=== PATIENT | male | born 1940 | race African-American/Black ===

== ENCOUNTER 2018-02-26 11:14 | Emergency (ER) | payer MEDICARE ==
[2018-02-26] MEDS ORDERED: KETOROLAC TROMETHAMINE INJ/PF 30 MG/1 ML SDV IM ONE (11:50)
[2018-02-26] MEDS ORDERED: DEXAMETHASONE SOD PHOS INJ 10 MG/1 ML VIAL IM ONE (11:50)
--- NOTE | 2018-02-26 11:51 | ER Document Report ---
ED Extremity Problem, Lower - General Chief Complaint: Foot Pain Stated Complaint: FOOT PAIN Time Seen by Provider: 02/26/18 11:40 Mode of Arrival: Medic Information source: Patient Notes: 77-year-old male presents to ED for gout flareup to the right foot and ankle. He states he has had gout in this area many times in the past and has not had one recently so his primary doctor is not putting on anything for the gout recently. Is also a diabetic with history of high blood pressure. He states the pain was so bad that he cannot drive himself here and he had to get a ride from EMS. TRAVEL OUTSIDE OF THE [place] IN LAST 30 DAYS: No - HPI Patient complains to provider of: Pain, Swelling Location: Ankle, Foot Where: Home Onset/Duration: Gradual Quality of pain: Sharp, Throbbing Severity: Severe Pain Level: 5 Context: Other Associated symptoms: Painful ambulation - Right hand foot and ankle Exacerbated by: Hanging down, Movement, Walking Relieved by: Nothing - Related Data Allergies/Adverse Reactions: aspirin Adverse Reaction (Verified 02/26/18 11:16) Past Medical History - General Information source: Patient - Social History Smoking Status: Never Smoker Cigarette use (# per day): No Chew tobacco use (# tins/day): No Smoking Education Provided: No Frequency of alcohol use: None Drug Abuse: None Lives with: Alone Family History: Arthritis, CVA, DM, Hyperlipidemia, Hypertension, Malignancy. denies: CAD, COPD, Thyroid Disfunction Patient has suicidal ideation: No Patient has homicidal ideation: No - Past Medical History Cardiac Medical History: Reports: Hx Hypercholesterolemia, Hx Hypertension Pulmonary Medical History: Reports: Hx Asthma, Hx COPD EENT Medical History: Reports: None Neurological Medical History: Reports: None Endocrine Medical History: Reports: Hx Diabetes Mellitus Type 2 Renal/ Medical History: Reports: None Malignancy Medical History: Reports None GI Medical History: Reports: Hx Gastritis, Hx Gastroesophageal Reflux Disease, Hx Ulcer, Hx Colonoscopy, Hx Endoscopy Musculoskeltal Medical History: Reports Hx Arthritis, Reports Hx Musculoskeletal Deformity, Reports Hx Musculoskeletal Trauma Skin Medical History: Reports None Psychiatric Medical History: Reports: None Traumatic Medical History: Reports: None Infectious Medical History: Reports: None Past Surgical History: Reports: Hx Orthopedic Surgery - Left knee ligament repairs and then total knee replacement - Immunizations Immunizations up to date: Yes Hx Diphtheria, Pertussis, Tetanus Vaccination: Yes - 4-5 years ago Review of Systems - Review of Systems Constitutional: No symptoms reported EENT: No symptoms reported Cardiovascular: No symptoms reported Respiratory: No symptoms reported Gastrointestinal: No symptoms reported Genitourinary: No symptoms reported Male Genitourinary: No symptoms reported Musculoskeletal: Other - Pain right foot and ankle swelling to the right hand and ankle Skin: No symptoms reported Hematologic/Lymphatic: No symptoms reported Neurological/Psychological: No symptoms reported -: Yes All other systems reviewed and negative Physical Exam - Vital signs Vitals: Temp Pulse Resp BP Pulse Ox 99.2 F 94 18 122/75 95 02/26/18 11:17 02/26/18 11:17 02/26/18 11:17 02/26/18 11:17 02/26/18 11:17 Interpretation: Normal - General General appearance: Appears well, Alert - HEENT Head: Normocephalic, Atraumatic Eyes: Normal Pupils: PERRL - Respiratory Respiratory status: No respiratory distress Chest status: Nontender Breath sounds: Normal Chest palpation: Normal - Cardiovascular Rhythm: Regular Heart sounds: Normal auscultation Murmur: No - Abdominal Inspection: Normal Distension: No distension Bowel sounds: Normal Tenderness: Nontender Organomegaly: No organomegaly - Back Back: Normal, Nontender - Extremities General lower extremity: Normal color. No: Silvino's sign Hand: Tender - Erythematous warm due to gout in the ring finger and hand, No evidence of human bite, No evidence of FB, Swelling. No: Abrasion, Deformity, Dislocation, Ecchymosis, Laceration, Nail injury, Tendon deficit Ankle: Tender, Edema - Erythematous due to gout, Limited ROM - Due to pain, Unable to bear weight Foot: Tender - Erythematous due to gout, Edema, No evidence of FB, Unable to bear weight - Neurological Neuro grossly intact: Yes Cognition: Normal Orientation: AAOx4 [place] Coma Scale Eye Opening: Spontaneous [place] Coma Scale Verbal: Oriented [place] Coma Scale Motor: Obeys Commands [place] Coma Scale Total: 15 Speech: Normal Motor strength normal: LUE, RUE, LLE, RLE Sensory: Normal - Psychological Associated symptoms: Normal affect, Normal mood - Skin Skin Temperature: Warm Skin Moisture: Dry Skin Color: Normal Course - Vital Signs Vital signs: Temp Pulse Resp BP Pulse Ox 99.1 F 66 16 123/74 95 02/26/18 13:33 02/26/18 13:33 02/26/18 13:33 02/26/18 13:33 02/26/18 13:33 Discharge - Discharge Clinical Impression: gout right ring finger Gout of right ankle Qualifiers: Gout etiology: unspecified cause Chronicity: unspecified Qualified Code(s): M10.9 - Gout, unspecified Condition: Stable Disposition: HOME, SELF-CARE Additional Instructions: Gout You have been diagnosed as having gout. Gout is a problem caused by an excess of uric acid, a natural chemical found in the body. The cause of this disease is unknown. Gout arthritis occurs when crystals of uric acid form in the joints. The big toe is the most common joint involved, but any joint can become affected. Persons with gout may also form uric acid kidney stones, resulting in flank pain and blood in the urine. Nodules of uric acid may form under the skin. The first step of treatment is to decrease the inflammation in the joint with antiinflammatory medication. Medication to lower the uric acid level in the blood may then be prescribed. This medication should be taken regularly, as any sudden change in dosage may provoke an attack of gout. Some foods, such as red meat, can provoke an attack in some gout sufferers. Call the doctor if new symptoms arise, or if you do not improve. Gout Diet Changing your diet can decrease the uric acid in your blood. High levels of uric acid cause gouty arthritis and uric acid kidney stones. If you have gout , you should avoid meats that are high in purine. Meat products to avoid include liver, kidneys, and brains. In general, poultry is better than red meats. Seafoods to avoid include anchovies, sardines, zamarripa, mackerel, and scallops. In addition to limiting purine-rich foods, people with gout should limit protein intake to 10-15% of total calories. Carbohydrate intake should be around 50% of total daily calories. Limit fat intake to 30% of total daily calories. Cholesterol intake should be less than 300 mg/day. Maintain or achieve a healthy body weight. Weight loss should be gradual. Rapid weight loss can actually increase uric acid levels temporarily. Alcohol, especially beer, should be avoided. Get plenty of fluids. This dilutes urinary uric acid, and helps prevent uric acid kidney stones. Drink eight to twelve cups of water daily. Toradol Injection You have been given an injection of ketorolac tromethamine (Toradol). This is an excellent, safe drug for pain control. It also has potent antiinflammatory action. You should have significant pain relief within about one hour. Toradol is not addicting and is non-sedating. It does not interfere with driving or work. Call or return if you develop itching, hives, shortness of breath, or rash. STEROID MEDICATION: You have been given an injection of medicine of the cortisone/steroid class. This medication is used to control inflammation or allergy. It is often continued as a pill for a short period of time, until the acute process subsides. There are usually no side effects from short-term use of cortisone-like medications. Some persons feel an increased sense of well-being and are not sleepy at bedtime. Long-term use of cortisone medications is best avoided, unless required for a severe condition. If your condition does not remit, or relapses after the course of corticosteroid medication, you should consult your physician. FOLLOW-UP CARE: If you have been referred to a physician for follow-up care, call the physician s office for an appointment as you were instructed or within the next two days. If you experience worsening or a significant change in your symptoms, notify the physician immediately or return to the Emergency Department at any time for re-evaluation. Prescriptions: Ibuprofen 600 mg PO Q8HP PRN #20 tablet PRN Reason: Prednisone [Deltasone 20 mg Tablet] 3 tab PO DAILY 5 Days tablet Referrals: KHUSHBOO BUENROSTRO MD [[facility]ED STAFF] - Follow up in 3-5 days
--- NOTE | 2018-02-26 12:41 | RADIOLOGY REPORT (SQ) ---
EXAM DESCRIPTION: ANKLE RIGHT COMPLETE COMPLETED DATE/TIME: 02/26/2018 12:20 pm REASON FOR STUDY: pain ,swelling COMPARISON: None. NUMBER OF VIEWS: Three views. TECHNIQUE: AP, lateral, and oblique radiographic images acquired of the right ankle. LIMITATIONS: None. FINDINGS: MINERALIZATION: Normal. BONES: There is small osteochondral defect in the medial aspect of the dome of the talus. That promi nent dorsal calcaneal spur. No fracture or dislocation. JOINTS: No effusions. SOFT TISSUES: No soft tissue swelling. No foreign body. OTHER: No other significant finding. IMPRESSION: Osteochondral defect. Calcaneal spur. No acute abnormality. TECHNICAL DOCUMENTATION: JOB ID: [id number] [email or web address]- All Rights Reserved Reading location - IP/workstation name: [email or web address]
--- NOTE | 2018-02-26 12:43 | RADIOLOGY REPORT (SQ) ---
EXAM DESCRIPTION: FOOT RIGHT COMPLETE COMPLETED DATE/TIME: 02/26/2018 12:20 pm REASON FOR STUDY: pain and swelling COMPARISON: None. NUMBER OF VIEWS: Three views. TECHNIQUE: AP, lateral and oblique radiographic images acquired of the right foot. LIMITATIONS: None. FINDINGS: MINERALIZATION: Normal. BONES: No acute fracture dislocation. Bunion. Degenerative joint changes at the 1st metatarsal-phal angeal joint. Dorsal calcaneal spur. JOINTS: No effusions. SOFT TISSUES: No soft tissue swelling. No foreign body. OTHER: No other significant finding. IMPRESSION: No acute abnormality. Findings as described. TECHNICAL DOCUMENTATION: JOB ID: [id number] [employer]- All Rights Reserved Reading location - IP/workstation name: [email or web address]
--- NOTE | 2018-02-26 13:07 | RADIOLOGY REPORT (SQ) ---
EXAM DESCRIPTION: HAND RIGHT 3 VIEWS COMPLETED DATE/TIME: 02/26/2018 12:57 pm REASON FOR STUDY: swollen ring finger COMPARISON: None. EXAM PARAMETERS: NUMBER OF VIEWS: Three views. TECHNIQUE: AP, lateral and oblique radiographic images acquired of the right hand. LIMITATIONS: None. FINDINGS: MINERALIZATION: Normal. BONES: No acute fracture or dislocation. No worrisome bone lesions. JOINTS: Extensive degenerative joint changes seen in the interphalangeal joint. Milder degenerative changes seen in the metacarpophalangeal joints. SOFT TISSUES: No soft tissue swelling. No foreign body. OTHER: No other significant finding. IMPRESSION: Extensive degenerative joint disease. TECHNICAL DOCUMENTATION: JOB ID: [id number] [employer]- All Rights Reserved Reading location - IP/workstation name: [email or web address]
[2018-02-26 13:40] VITALS: BP 123/74
== END 2018-02-26 13:40 | disposition home or self-care (01) ==
LOC: ER 11:14
DX: M10.9 Gout, unspecified (principal); M79.671 Pain in right foot; M25.571 Pain in right ankle and joints of right foot; M79.89 Other specified soft tissue disorders; E11.9 Type 2 diabetes mellitus without complications; I10 Essential (primary) hypertension; J44.9 Chronic obstructive pulmonary disease, unspecified
CPT/HCPCS: 99283; 96372; 73610; 73630; 73130; J1885; J1100

== ENCOUNTER 2018-05-15 11:02 | Day surgery (SDC) | payer MEDICARE ==
[~2018-05-15 11:02] MED LIST: BUPIVACAINE HCL 0.75% INJ/PF (7.5 MG/1 ML) 10 ML SDV OD PRN; CHONDR SU A NA/HYALUR INTRAOC KIT (SURGICARE) ONE; EPINEPHRINE INJ/PF 1 MG/1 ML AMPULE ONE; KETOROLAC TROMETHAMINE 0.45% 4 DROP/0.4 ML DROPERETTE OD PRN; LIDOCAINE 1% INJ-PF (10 MG/ML) 30 ML SDV ONE; LIDOCAINE 4% INJ/PF (40 MG/ML) 5 ML AMPUL OD PRN; TOBRAMYCIN SULFATE/DEXAMETH OPH OINTMENT 3.5 GM ONE
[2018-05-15] MEDS: CYCLOPENTOLATE 0.2%/PHENYLEPHRINE 1% OPH SOLN 2 ML OD PRN ×3 (11:50→12:10)
[2018-05-15] MEDS: TROPICAMIDE 1% OPH SOLN 3 ML OD PRN ×3 (11:50→12:10)
[2018-05-15] MEDS: TETRACAINE HCL 0.5% OPH SOLN 0.6 ML DROPERETTE OD PRN ×3 (11:51→12:23)
[2018-05-15] MEDS: BESIFLOXACIN HCL 0.6% OPH SUSP 5 ML BOTTLE OD PRN ×3 (11:51→12:50)
[2018-05-15] MEDS ORDERED: FENTANYL CITRATE INJ/PF 100 MCG/2 ML AMPUL ONE (12:06)
[2018-05-15] MEDS ORDERED: MIDAZOLAM 2 MG/2 ML INJ ONE (12:06)
== END 2018-05-15 13:35 | disposition home or self-care (01) ==
LOC: SC 11:02
PROVIDERS: ATTEND Ophthalmology
DX: H25.11 Age-related nuclear cataract, right eye (principal); E11.9 Type 2 diabetes mellitus without complications; I10 Essential (primary) hypertension; E78.00 Pure hypercholesterolemia, unspecified; N40.0 Benign prostatic hyperplasia without lower urinary tract symptoms; Z96.652 Presence of left artificial knee joint; J45.909 Unspecified asthma, uncomplicated; Z79.82 Long term (current) use of aspirin; Z79.84 Long term (current) use of oral hypoglycemic drugs; Z79.899 Other long term (current) drug therapy
CPT/HCPCS: 66984; 82962; V2630; J2250; J3490 ×3; A9270; J0171; J3010; 142

== ENCOUNTER 2018-05-24 05:30 | Day surgery (SDC) | payer MEDICARE ==
[2018-05-20 11:40] LABS: HEMATOCRIT 41.1 % (37.9-51.0); HEMOGLOBIN 13.9 g/dL (13.5-17.0); MEAN CORPUSCULAR HEMOGLOBIN 31.6 pg (27.0-33.4); MEAN CORPUSCULAR HGB CONC 33.8 g/dL (32.0-36.0); MEAN CORPUSCULAR VOLUME 93 fl (80-97); PLATELET COUNT 203 10^3/uL (150-450); RED CELL DISTRIBUTION WIDTH 14.6 % (11.5-14.0); WHITE BLOOD COUNT 6.6 10^3/uL (4.0-10.5)
[2018-05-20 12:05] LABS: ANION GAP 9 (5-19); BLOOD UREA NITROGEN 20 mg/dL (7-20); CALCIUM 9.2 mg/dL (8.4-10.2); CARBON DIOXIDE 26 mmol/L (22-30); CHLORIDE 110 mmol/L (98-107); GLUCOSE 220 mg/dL (75-110); POTASSIUM 5.2 mmol/L (3.6-5.0); SODIUM 145.3 mmol/L (137-145)
--- NOTE | 2018-05-20 12:10 | RADIOLOGY REPORT (SQ) ---
EXAM DESCRIPTION: CHEST PA/LATERAL COMPLETED DATE/TIME: 05/20/2018 12:01 pm REASON FOR STUDY: PRE-OP cough. COMPARISON: None. EXAM PARAMETERS: NUMBER OF VIEWS: two views TECHNIQUE: Digital Frontal and Lateral radiographic views of the chest acquired. RADIATION DOSE: NA LIMITATIONS: none FINDINGS: LUNGS AND PLEURA: Linear scarring versus atelectasis of the lung bases. No discrete opaci ties. MEDIASTINUM AND HILAR STRUCTURES: No masses or contour abnormalities. HEART AND VASCULAR STRUCTURES: Heart normal size. No evidence for failure. BONES: No acute findings. HARDWARE: None in the chest. OTHER: No other significant finding. IMPRESSION: Linear scarring versus atelectasis at the lung bases. TECHNICAL DOCUMENTATION: JOB ID: [id number] [email or web address]- All Rights Reserved Reading location - IP/workstation name: [email or web address]
--- NOTE | 2018-05-20 12:28 | EKG REPORT ---
SEVERITY:- ABNORMAL ECG - SINUS RHYTHM FIRST DEGREE AV BLOCK PROBABLE LEFT ATRIAL ABNORMALITY BORDERLINE LEFT AXIS DEVIATION : Confirmed by: Joanne Heart MD 20-May-2018 12:27:55
[~2018-05-24 05:30] MED LIST changes: -BUPIVACAINE HCL 0.75% INJ/PF (7.5 MG/1 ML) 10 ML SDV OD PRN; +CEFAZOLIN 2 GM/D5W RTU 2 GM/50 ML RTUPB IV PRN; -CHONDR SU A NA/HYALUR INTRAOC KIT (SURGICARE) ONE; -EPINEPHRINE INJ/PF 1 MG/1 ML AMPULE ONE; -KETOROLAC TROMETHAMINE 0.45% 4 DROP/0.4 ML DROPERETTE OD PRN; +LACTATED RINGERS 1000 ML IV PRN; +LIDOCAINE 0.5% INJ-PF (5 MG/ML) 50 ML SDV SUBCUT PRN; -LIDOCAINE 1% INJ-PF (10 MG/ML) 30 ML SDV ONE; -LIDOCAINE 4% INJ/PF (40 MG/ML) 5 ML AMPUL OD PRN; +RINGERS SOLUTION,LACTATED 1,000 ML IV PRN; -TOBRAMYCIN SULFATE/DEXAMETH OPH OINTMENT 3.5 GM ONE
[2018-05-24] MEDS ORDERED: BUPIVACAINE HCL 0.25 % INJ/PF (2.5 MG/1 ML) 30 ML VIAL ONE (06:45)
[2018-05-24] MEDS ORDERED: ACETAMINOPHEN 1,000 MG/100 ML RTUPB IV ONE (07:09)
[2018-05-24] MEDS ORDERED: PROPOFOL INJ 200 MG/20 ML VIAL IV ONE (07:09)
[2018-05-24] MEDS ORDERED: FENTANYL CITRATE INJ/PF 250 MCG/5 ML AMPULE ONE (07:10)
[2018-05-24] MEDS ORDERED: EPHEDRINE SULFATE INJ 50 MG/1 ML AMPULE ONE (07:10)
[2018-05-24] MEDS ORDERED: MIDAZOLAM 2 MG/2 ML INJ ONE (07:20)
[2018-05-24] MEDS ORDERED: DIPHENHYDRAMINE HCL 50 MG/ML VIAL IV PRN (07:52)
[2018-05-24] MEDS ORDERED: OXYCODONE-ACETAMINOPHEN 5-325 MG TABLET PO PRN ×2 (07:52)
[2018-05-24] MEDS ORDERED: PROMETHAZINE HCL INJ 25 MG/1 ML VIAL IV PRN ×2 (07:52)
[2018-05-24] MEDS ORDERED: MEPERIDINE HCL/PF INJ 25 MG/1 ML DISP.SYRIN IV PRN (07:52)
[2018-05-24] MEDS ORDERED: FENTANYL CITRATE INJ/PF 100 MCG/2 ML AMPUL IV PRN ×3 (07:52)
--- NOTE | 2018-05-24 11:19 | Discharge Summary ---
Discharge Summary (SDC) - Discharge Final Diagnosis: left inguinal hernia, umbilical henria Date of Surgery: 05/24/18 Discharge Date: 05/24/18 Condition: Stable Treatment or Instructions: ok to shower on Sunday. No tub baths 2 weeks. Referrals: KHUSHBOO BUENROSTRO MD [Primary Care Provider] - Discharge Diet: As Tolerated Respiratory Treatments at Home: Deep Breathing/Coughing, Incentive Spirometer Discharge Activity: No Lifting Over 10 Pounds - 6 weeks Home Care Assistance: None Needed Report the Following to Your Physician Immediately: Shortness of Breath, Nausea , Vomiting, Increase in Pain, Fever over 101 Degrees, Unusual Bleeding, Redness , Swelling, Warmth
[2018-05-24] MEDS ORDERED: HYDROCODONE/ACETAMINOPHEN 10-325 MG TABLET PO PRN (11:24)
--- NOTE | 2018-05-24 11:29 | Operative Report ---
Nonrecallable Operative Report DATE OF SURGERY: 05/24/18 PREOPERATIVE DIAGNOSIS: 1. Left inguinal hernia. 2. Symptomatic umbilical hernia POSTOPERATIVE DIAGNOSIS: Same as above OPERATION: 1. Robot-assisted laparoscopic left inguinal hernia repair with mesh. 2. Open umbilical hernia repair with mesh. SURGEON: ROGER PROCTOR ANESTHESIA: GA TISSUE REMOVED OR ALTERED: None COMPLICATIONS: None apparent ESTIMATED BLOOD LOSS: 20 cc PROCEDURE: Drains/implants: #1 large left-sided 3 DMax inguinal hernia mesh. 2. [address] hernia mesh. Procedure in detail: After informed consent was obtained, the patient was laid in the supine position in the operating room. The area of the abdomen was prepped and draped in a normal sterile fashion. A curvilinear supraumbilical incision was created. Dissection was carried down through the subcutaneous tissue using sharp dissection. The hernia sac was identified. Cicatrix and hernia sac were elevated away from the anterior abdominal wall and divided sharply. The defect was then used for placement of the 12 mm balloon trocar. Once the balloon trocar was placed, pneumoperitoneum was achieved. Two 8 mm robotic trochars were then placed in the right and left lateral abdominal wall. This was done under direct laparoscopic visualization. Once this was completed, the robot was brought over the patient and docked appropriately. I then assumed my position at the surgeon's console. Attention was turned to the left groin. There was a large indirect inguinal hernia defect present. An incision was created in the peritoneum approximately 2-3 cm superior to the defect. A preperitoneal dissection was carried out using sharp dissection, blunt dissection, and Bovie electrocautery. The sac was freed from the cord structures. This was done with great care, so as not to injure the cord structures. Once this was completed the sac was everted. A large lipoma of the cord was reduced. Next a large left-sided 3 DMax inguinal hernia mesh was placed into the preperitoneal space. It was sutured medially and superiorly. The mesh was found to lie in very good place. Once this was completed, the peritoneum was closed using 2-0 V lock suture in simple running fashion. The repair was then inspected. It was found to be in good order. The trochars were then removed, and attention was turned to repair of the umbilical hernia defect. The hernia sac was dissected free and the omentum was reduced into the abdominal cavity. The defect was then measured to be approximately 2.5 cm in total craniocaudal diameter. An [address] hernia mesh was chosen to adequately cover the defect. The mesh was inserted into the abdominal cavity and sutured to the fascia using a trans-fascial mattress technique. The mesh was sutured in place using 0 Prolene suture. The fascia was then closed over the mesh using 0 Prolene suture in [id number] fashion. The cicatrix was tacked to the fascia using 3-0 Vicryl suture. The overlying skin was closed using 4-0 Vicryl Rapide suture in running subcuticular fashion. Dressings were placed, and the procedure was concluded. All sponge, instrument, and needle counts were correct 2. condition: Stable.
[2018-05-24] MEDS ORDERED: HYDROCODONE/ACETAMINOPHEN 10-325 MG TABLET ONE (11:35)
[2018-05-24 13:42] VITALS: BP 133/79
[2018-05-24] MEDS ORDERED: TAMSULOSIN HCL 0.4 MG CAP.SR.24H PO ONE (14:30)
[2018-05-24] MEDS ORDERED: NEOSTIGMINE METHYLSULFATE 10 MG/10 ML VIAL ONE (14:49)
[2018-05-24] MEDS ORDERED: DEXAMETHASONE SOD PHOSPHATE INJ 4 MG/1 ML VIAL ONE (14:49)
[2018-05-24] MEDS ORDERED: SUCCINYLCHOLINE CHLORIDE INJ 200 MG/10 ML VIAL ONE (14:49)
[2018-05-24] MEDS ORDERED: ROCURONIUM BROMIDE INJ 50 MG/5 ML VIAL IV ONE (14:49)
[2018-05-24] MEDS ORDERED: GLYCOPYRROLATE INJ 0.4 MG/2 ML VIAL ONE (14:49)
== END 2018-05-24 14:10 | disposition home or self-care (01) ==
LOC: OROUT 05:30
PROVIDERS: ATTEND Surgery
DX: K40.90 Unilateral inguinal hernia, without obstruction or gangrene, not specified as recurrent (principal); K42.9 Umbilical hernia without obstruction or gangrene; I10 Essential (primary) hypertension; E11.9 Type 2 diabetes mellitus without complications; E78.00 Pure hypercholesterolemia, unspecified; Z88.6 Allergy status to analgesic agent; Z79.84 Long term (current) use of oral hypoglycemic drugs; Z01.818 Encounter for other preprocedural examination
CPT/HCPCS: 49585; 49650; S2900; 36415; 71046; 80048; 82947; 840; 84132; 85027; 93005; 93010; J0131; J0330; J0690; J1100; J2250; J2704; J3010; J3490